=== PATIENT | male | born 1945 | race Caucasian/White ===

== ENCOUNTER → 2019-01-11 10:27 | Outpatient (CLI) | payer MEDICARE, OTHER ==
[2012-12-05 14:18] VITALS: BMI 35.0
[~2019-01-11 10:27] MED LIST: BAYER CHEWABLE81 MG PO; GLUCOPHAGE500 MG PO; LOTENSIN10 MG PO; PLAVIX75 MG PO; ZOCOR20 MG PO
== END | disposition home or self-care (01) ==
LOC: D.CT 10:27
PROVIDERS: ATTEND Internal Medicine Cardiovascular Disease
DX: I65.23 Occlusion and stenosis of bilateral carotid arteries (principal)

== ENCOUNTER 2019-02-22 14:50 | Inpatient (IN) | payer MEDICARE, OTHER ==
[~2019-02-22] VITALS: Ht 170.2 cm; Wt 94.8 kg
[2019-02-22] MEDS ORDERED: CO Q-10200 MG PO (15:10)
[2019-02-22] MEDS ORDERED: CENTRUM MEN'S1 EACH PO (15:11)
[2019-02-22 16:49] LABS: HEMATOCRIT 38.4 % (42.0-54.0); HEMOGLOBIN 12.6 g/dL (13.5-17.5); MCH 33.2 pg (26.0-34.0); MCHC 32.8 g/dL (31.0-37.0); MCV 101.1 fL (80.0-100.0); MEAN PLATELET VOLUME 10.3 fL (7.4-10.4); RBC 3.8 10x6/uL (4.20-6.10); RDW 13.4 % (11.5-14.5); WBC 6.8 10x3/uL (4.8-10.8)
[2019-02-22 16:50] LABS: APPEARANCE CLEAR (CLEAR); COLOR YELLOW (YELLOW); NITRITE NEGATIVE (NEGATIVE)
[2019-02-22 16:51] LABS: BILIRUBIN NEGATIVE (NEGATIVE); GLUCOSE NEGATIVE (NEGATIVE); KETONE NEGATIVE (NEGATIVE); PROTEIN 1+ mg/dL (NEGATIVE); UROBILINOGEN NORMAL (NORMAL)
[2019-02-22 16:52] LABS: BACTERIA FEW /hpf (NEGATIVE); RED CELLS - URINE RARE /hpf (0-5); WHITE CELLS - URINE OCC /hpf (NEGATIVE)
[2019-02-22 17:00] LABS: ALBUMIN 3.9 g/dL (3.4-5.0); ANION GAP 9.2 mmol/L (8-16); BILIRUBIN - TOTAL 0.35 mg/dL (0.2-1.3); CARBON DIOXIDE 33.2 mmol/L (21.0-32.0); CREATININE - SERUM 1.6 mg/dL (0.6-1.3); POTASSIUM - SERUM 5.4 mmol/L (3.5-5.1); PROTEIN - SERUM 7.4 g/dL (6.4-8.2)
[2019-02-22 17:15] LABS: APTT 25.3 SECONDS (22.8-39.4)
[2019-02-22 17:16] LABS: INR 1.08 (0.85-1.17); PROTIME 13.5 SECONDS (11.6-15.0)
[2019-02-28] VITALS (68 sets, daily range): BP systolic 106–190; BP diastolic 35–81; BMI 33.1; BMI 33.6
--- NOTE | 2019-02-28 11:00 | NUR ---
Arrived from O.R. around 1050. On 15L 02 via simple mask. Left anterior neck incision with dressing c/d/i. RIAZ chest SHANI drain in place, dressing c/d/i. R-Sub cvl with plasmolyte infusing at 100ml/hr and nitroglycerin at 50mcg/min. Right radial a-line in place. Zeroed on arrival. Pt awake and alert. Able to answer questions appropriately. Connected to ICU monitors. Call light in reach. Will continue to monitor.
--- NOTE | 2019-02-28 16:25 | NUR ---
PT ENCOURAGED TO PERFORM I.S. EXERCISES EVERY HOUR. PULLS BETWEEN [phone] ON I.S. AT THIS TIME. WILL CONTINUE TO MONITOR.
--- NOTE | 2019-02-28 19:00 | NUR ---
REPORT RECEIVED AT BEDSIDE, SHIFT ASSESSMENT COMPLETE PER FLOW SHEET, PT AAOx4 DENIES NEEDS AT THIS TIME, RESTING COMFORTABLY IN BED, NSR ON CM, VSS, LCEA SITE C/D/I, WILL CONTINUE TO MONITOR
--- NOTE | 2019-02-28 21:00 | NUR ---
MEDS GIVEN SEE MAR, NO ACUTE DISTRESS NOTED, PT AAOx4, FAMILY AT BEDSIDE, VSS
--- NOTE | 2019-02-28 23:00 | NUR ---
REASSESSMENT COMPLETE SEE FLOW SHEET, NO ACUTE CHANGES SINCE PRIOR ASSESSMENT, REPOSITIONED FOR COMFORT, VSS, WILL CONTINUE TO MONITOR
[2019-03-01] VITALS (134 sets, daily range): BP systolic 93–156; BP diastolic 38–79
--- NOTE | 2019-03-01 03:00 | NUR ---
REASSESSMENT COMPLETE, NO ACUTE CHANGES NOTED, PT DENIES PAIN OR NEEDS AT THIS TIME, VSS, REPOSITIOPNED FOR COMFORT, I/S AND TCDB COMPLETED WITH GOOD EFFORT,
--- NOTE | 2019-03-01 04:30 | NUR ---
LEFT UPPER CHEST SHANI DRAIN REMOVED BY KISHOR HEAD, DIRECT PRESSURE HELD FOR 15MIN, 2X2 GAUZE WITH TEGADERM DRSG PLACED ON SITE, NO ACUTE S/S OF DISTRESS NOTED, PT TOLLERATED Tx WELL, VSS, NSR ON CM, WILL CONTINUE TO MONITOR
--- NOTE | 2019-03-01 05:30 | NUR ---
CHG BATH AND COMPLETE LINEN CHANGE, YELLOW GOWN PLACED ON PT, REPOSITIONED IN BED FOR COMFORT, DRSG'S C/D/I, NSR ON CM, VSS, WILL CONTINUE TO MONITOR
--- NOTE | 2019-03-01 07:19 | NUR ---
UP IN BED AWAKE AT THIS TIME. NO ACUTE DISTRESS NOTED. VSS. CARDIAC DRIP TITRATED TO ORDER, SEE IV FLOWSHEET. PT ALERT AND ORIENTED. DRESSINGS TO LT NECK AND LT CHEST CDI, SEE SHIFT ASSESSMENT FOR FURTHER INFROMATION. CALL LIGHT IN REACH, PERSONAL ITEMS IN REACH. WILL CONTINUE PLAN OF CARE.
--- NOTE | 2019-03-01 08:13 | NUR ---
UP IN BED AWAKE AT THIS TIME VISITING WITH VISITOR. NO ACUTE DISTRESS NOTED. NITRO AND CLEVIPREX TITRATED TO ORDER, SEE IV FLOWSHEET. WILL CONTINUE PLAN OF CARE.
--- NOTE | 2019-03-01 09:06 | NUR ---
INCENTIVE SPIROMETER ATTEMPT NOTED AT [phone]. PT IS ALERT AND ORIENTED NO ACUTE DISTRESS NOTED. VSS. WILL CONTINUE PLAN OF CARE.
--- NOTE | 2019-03-01 10:00 | NUR ---
ANAYA DC AT THIS TIME PER PHYSICIAN ORDERS. CATHETER TIP INTACT. VSS. WILL CONTINUE PLAN OF CARE.
--- NOTE | 2019-03-01 10:55 | NUR ---
A-LINE DCD AT THIS TIME PER ORDERS, CATHETER TIP INTACT. PRESSURE HELD TO SITE FOR 5 MIN. WHEN PRESSURE REMOVED NOTED SITE WAS STILL BLEEDING, PRESSURE REAPPLIED FOR ANOTHER 5 MIN. AT THIS TIME BLEEDING HAS STOPPED. MADAY PLACED TO DRESSING TO INDICATE ANY FURTHER BLEEDING. VSS. WILL CONTINUE PLAN OF CARE.
--- NOTE | 2019-03-01 10:59 | NUR ---
UP IN CHAIR WITH ASSIST FROM PHYSICAL THERAPY.
--- NOTE | 2019-03-01 12:02 | NUR ---
UP IN CHAIR EATING LUNCH AT THIS TIME. NO ACUTE DISTRESS NOTED. VSS. NITRO AND CLEVIPREX TITRATED TO ORDER. SEE IV FLOWSHEET. WILL CONTINUE PLAN OF CARE.
--- NOTE | 2019-03-01 13:56 | NUR ---
WALKED WITH PHYSICAL THERAPY AT THIS TIME, STATED PT IS OKAY TO WALK IN ROOM. WALKED 200FT WITH PHYSICAL THERAPY. NO ACUTE DISTRESS NOTED. UP IN CHAIR. VSS. WILL CONTINUE PLAN OF CARE.
--- NOTE | 2019-03-01 14:00 | NUR ---
VOID NOTED VIA TOILET AT THIS TIME. NO ACUTE DISTRESS NOTED. VSS. WILL CONTINUE PLAN OF CARE.
--- NOTE | 2019-03-01 15:00 | NUR ---
PT WALKED WITH NURSE AT THIS TIME. 500FT. NO SHORTNESS OF BREATH NOTED DURING WALK. NO ACUTE DISTRESS NOTED. PT UP IN CHAIR IN ROOM. CALL LIGHT IN REACH. WILL CONTINUE PLAN OF CARE.
--- NOTE | 2019-03-01 15:41 | NUR ---
HEART RHYTHM SINUS WITH OCCASIONAL PAC. DR MENDEZ NOTIFIED. NO NEW ORDERS RECIEVED. VSS. WILL CONTINUE PLAN OF CARE.
--- NOTE | 2019-03-01 17:21 | NUR ---
WALKED 500FT WITH NURSE AND FAMILY. NO ACUTE DISTRESS NOTED. VSS. NO SOB NOTED. WILL CONTINUE PLAN OF CARE.
--- NOTE | 2019-03-01 20:06 | NUR ---
PT RECEIVED WITH EYES OPEN. ALERT AND ORIENTED. COMPLAINS OF PAIN 4/10 WITH PRN TRAMADOL GIVEN PER JUL. TITRATING NITRO PER PROTOCOL TO RIGHT SUBCLAVIAN WITH PLASMALYTE AT 30 ML/HR. DRESSING TO LEFT NECK FALLING OFF AND REPLACED, INCISION WELL APPROXIMATED AND NO DRAINAGE NOTED. JUST INTO ROOM. NO OTHER NEEDS MADE KNOWN. CALL LIGHT IN REACH. WILL CONTINUE TO OBSERVE.
--- NOTE | 2019-03-01 22:00 | NUR ---
PT WITH EYES OPEN TALKING WITH . CONTINUING NITRO TITRATION TOLERATING. NO NEEDS MADE KNOWN. CALL LIGHT IN REACH. WILL CONTINUE TO OBSERVE
--- NOTE | 2019-03-01 23:56 | NUR ---
PT RESTING WITH EYES CLOSED AND CHEST RISING. VSS. SBP <140, TITRATING NITRO TOLERATED. CALL LIGHT IN REACH. WILL CONTINUE TO OBSERVE.
[2019-03-02] VITALS (63 sets, daily range): BP systolic 107–167; BP diastolic 32–80; Ht 170.2 cm; Wt 94.8 kg
--- NOTE | 2019-03-02 01:43 | NUR ---
PT UP TO BATHROOM WITH ASSIST WITH MONITOR WIRES. URINE ONLY NOTED. PT BACK IN BED ON MONITOR. CALL LIGHT IN REACH. WILL CONTINUE TO OBSERVE.
--- NOTE | 2019-03-02 03:35 | NUR ---
PT RESTING WITH EYES CLOSED AND CHEST RISING. EASILY AWOKEN TO VERBAL STIMULI. CALL LIGHT IN REACH. NO S/S OF DISTRESS. NITRO ON HOLD DUE TO SBP <140
--- NOTE | 2019-03-02 06:59 | NUR ---
PT REFUSES BATH, STATING HE IS GOING HOME AND TAKE BATH/SHOWER AT HOME. CALL LIGHT IN REACH. WILL CONTINUE TO OBSERVE
--- NOTE | 2019-03-02 07:42 | NUR ---
PT UP TO CHAIR. GOES INTO AFIB 140 HR. B/P 144/80. DR MENDEZ CALLED AND GAVE REPORT, RECEIVED ORDERS FOR 5ML LOPRESSOR IV AND 25MG LOPRESSOR PO BID WITH FIRST DOSE GIVEN NOW. MEDS GIVEN. PT TOLERATED WELL. WILL REPORT TO ON COMING STAFF.
--- NOTE | 2019-03-02 11:41 | NUR ---
0730: AWAKE AND ALERT. REMAINS IN UNCONTROLLED ATRIAL FIB. 0745: NTG DC'D. 0830: DR. MENDEZ'S NURSE HERE. NEW ORDERS REC'D. 0849: LOPRESSOR 5MG GIVEN IV SLOWLY. 0900: CONSULT CALLED TO DR. LANE'S OFFICE. 0945: CONVERTED TO SR. 1120: DR. MENDEZ HERE. 1130: DR. LANE HERE FOR CONSULT. NEW ORDERS REC'D.
[2019-03-02] MEDS ORDERED: ULTRAM50 MG PO (13:04)
[2019-03-02] MEDS ORDERED: BETAPACE 80 MG80 MG PO (13:04)
--- NOTE | 2019-03-02 19:00 | NUR ---
REPORT RECEIVED. INITIAL ASSESSMENT COMPLETE PT RESTING QUIETLY OPENS EYES TO VERBAL STIMULI ORIENTED X 4 DENIES PAIN. LEFT NECK INCISION CLEAN DRY NO REDNESS NOTED SHAYLA. RESP EVEN AND NONLABORED O2 PER NC BREATH SOUNDS CLEAR. CM READING SR WITHOUT ECTOPY AT THIS TIME ALARMS ON AND AUDIBLE. BED LOW POSITION SIDE RAILS UP TIMES 3 FOR BED MOBILITY AND SAFETY. CALL LIGHT IN REACH PT DENIES NEEDS AT THIS TIME. WILL CONTINUE TO MONITOR
--- NOTE | 2019-03-02 19:06 | MORECARE ---
CASE MANAGEMENT DISCHARGE SUMMARY PATIENT: IRAIDA LAURENT UNIT: [id number] ADM DATE: 02/28/19 AGE: 73 : 45 SEX: M ROOM/BED: D[facility] AUTHOR: ASHLEIGH SCHMIDT PHYSICIAN: REFERRING PHYSICIAN: RODRI MENDEZ MD DATE OF SERVICE: 03/02/19 Discharge Plan Patient Name: IRAIDA LAURENT [facility] [facility] 1945 Planned Disposition: Home Anticipated Discharge Date: Discharge Date: Expected LOS: Initial Reviewer: [email or web address] Initial Review Date: 03/02/2019 Generated: 03/02/19 8:05 pm DCPIA - Discharge Planning Initial Assessment Updated by [email or web address]: Ashley Lara on 03/02/19 7:05 pm * Is the patient Alert and Oriented? Yes * How many steps to enter\exit or inside your home? * PCP SURINDER [facility] * [facility] [place] * Preadmission Environment Home Alone * ADLs Independent * Equipment None * List name and contact numbers for known caregivers / representatives who currently or will assist patient after discharge: YASH / REINALDO LAURENT - SON - [phone] * Verbal permission to speak to the caregivers and representatives has been obtained from the patient. Yes * Community resources currently utilized None * Additional services required to return to the preadmission environment? No * Can the patient safely return to the preadmission environment? Yes * Has this patient been hospitalized within the prior 30 days at any hospital? No Patient Name: IRAIDA LAURENT Page [id number] at 1906 All edits/amendments must be made on the electronic document DICTATION DATE: 03/02/191904 OIL BAY TECHNICIAN: ARIK 03/02/191904 RPT#: [id number] DC DATE: STATUS: ADM IN [facility] [address] [place] [address] END OF REPORT
--- NOTE | 2019-03-02 19:12 | MORECARE ---
CASE MANAGEMENT DISCHARGE SUMMARY PATIENT: IRAIDA LAURENT UNIT: [id number] ADM DATE: 02/28/19 AGE: 73 : 45 SEX: M ROOM/BED: D.02 AUTHOR: ROXANADOC PHYSICIAN: REFERRING PHYSICIAN: RODRI MENDEZ MD DATE OF SERVICE: 03/02/19 Discharge Plan Patient Name: IRAIDA LAURENT Facility: [facility]:[place] : 1945 Planned Disposition: Home Anticipated Discharge Date: Discharge Date: Expected LOS: Initial Reviewer: [email or web address] Initial Review Date: 03/02/2019 Generated: 03/02/19 8:12 pm Comments DCP- Discharge Planning Updated by [email or web address]: Ashley Lara on 03/02/19 6:[address] Patient Name: IRAIDA LAURENT Admission Status: Urgent Accout number: [id number] Admission Date: 02-28-2019 : 1945 Admission Diagnosis: Attending: RODRI MENDEZ Current LOS: 2 Anticipated DC Date: Planned Disposition: Home Primary Insurance: MEDICARE A & B Discharge Planning Comments: CM met with patient at bedside after explaining CM role and obtaining verbal consent. Patient lives at home alone where he is independent with his care and plans to return there upon discharge. Patient feels this would be a safe discharge. CM discussed availability / needs of home health and medical equipment. Patient denies any discharge needs at this time. Patient states he will have his family drive him home upon discharge. CM will continue to follow and assist as needed with discharge planning / needs. Medical Laboratory Manager: Ashley Lara DCPIA - Discharge Planning Initial Assessment Updated by [email or web address]: Ashley Lara on 03/02/19 7:05 pm * Is the patient Alert and Oriented? Yes * How many steps to enter\exit or inside your home? * PCP SURINDER Buc[facility] * [facility] [place] * Preadmission Environment Home Alone * ADLs Independent * Equipment None * List name and contact numbers for known caregivers / representatives who currently or will assist patient after discharge: YASH / REINALDO LAURENT - SON - [phone] * Verbal permission to speak to the caregivers and representatives has been obtained from the patient. Yes * Community resources currently utilized None * Additional services required to return to the preadmission environment? No * Can the patient safely return to the preadmission environment? Yes * Has this patient been hospitalized within the prior 30 days at any hospital? No Last DP export: 03/02/19 6:06 Patient Name: IRAIDA LAURENT Page 57715 at 1912 All edits/amendments must be made on the electronic document DICTATION DATE: 03/02/191911 PAN RECLAIM PROCESSOR: ARIK 03/02/191911 RPT#: [id number] DC DATE: STATUS: ADM IN [facility] [address] [place] [address] END OF REPORT
--- NOTE | 2019-03-02 20:00 | NUR ---
PTS AT BEDSIDE FOR VISITATION UPDATE GIVEN AND QUESTIONS ANSWERED. VSS WILL CONTINUE TO MONITOR
--- NOTE | 2019-03-02 21:00 | NUR ---
PT UP OUT OF BED WALKING AROUND. ENCOURAGED AGAIN TO CALL NURSE BEFORE GETTING OOB DUE TO FALL RISK. PT VERBALIZES GOOD UNDERSTANDING. ALSO REQUESTING WENT TO WAITING ROOM AND AT BEDSIDE FOR VISITATION
--- NOTE | 2019-03-02 22:15 | NUR ---
PTS OUT TO NURSES DESK STATING PT WANTING SOMETHING FOR PAIN. MEDICATED PER PRN ORDERS SEE EMAR
--- NOTE | 2019-03-02 23:00 | NUR ---
REASSESSMENT MADE NO CHANGES PTS AT BEDSIDE PER PTS REQUEST. NO S/S OF DISTRESS VSS CPOC
[2019-03-03] VITALS (25 sets, daily range): BP systolic 115–151; BP diastolic 37–71
--- NOTE | 2019-03-03 01:00 | NUR ---
PT MOUTH BREATHER AND USES CPAP AT HOME. ON O2 PER NC WITH SATS DROPPING TO MID 80'S AT TIMES DOES INCREASE BACK TO 90'S QUICKLY. WILL PASS ALONG IN REPORT
--- NOTE | 2019-03-03 03:00 | NUR ---
REASSESSMENT COMPLETE AFTER SOTALOL PT HEART RATE DROPS TO 40'S BUT DOES RETURN BACK TO 70-80'S QUICKLY, PT IS A MOUTH BREATHER AND USES HOME CPAP AT TIMES O2 SAT DROPS TO MID 80'S BUT QUICKLY RETURNS TO 90'S. DENIES NEEDS AT THIS TIME. DENIES PAIN. CL IN REACH AT BEDSIDE CPOC
--- NOTE | 2019-03-03 04:15 | NUR ---
ANSWERED PTS CALL LIGHT PT NEEDED UP TO BATHROOM STEADY GAIT MINIMAL ASSIST JUST WITH MONITOR LINES AND CORDS. AFTER BATHROOM PT WANTED TO SIT UP IN CHAIR STATES HE WANTS TO SIT BED NOT COMFORTABLE.
--- NOTE | 2019-03-03 05:00 | NUR ---
PT NOT READY FOR BATH AT THIS TIME WANTS BACK TO BED ASSISTED BACK TO BED. STILL AT BEDSIDE
--- NOTE | 2019-03-03 06:45 | NUR ---
PT UP TO CHAIR MINIMAL ASSIST JUST WITH CORDS AND TUBING.
--- NOTE | 2019-03-03 06:50 | NUR ---
PTS WANTS TO WAIT UNTIL AFTER BREAKFAST FOR BATH AND HIS WILL ASSIST WITH BATH
--- NOTE | 2019-03-03 07:05 | NUR ---
UP IN CHAIR, ALERT AND ORIENTED, SB @ 59 ON MONITOR, OTHER VSS, DENIES PAIN OR ANY NEEDS, ASSESSMENT COMPLETED PER FLOWSHEET, CALL LIGHT IN REACH
--- NOTE | 2019-03-03 07:55 | NUR ---
BREAKFAST TO CHAIRSIDE, INDEPENDENT WITH SET UP AND EATING
--- NOTE | 2019-03-03 10:37 | NUR ---
MORNING MEDS GIVEN, SOTALOL DECREASED TO 40 MG
--- NOTE | 2019-03-03 11:00 | NUR ---
SLEEPING WITH NO SIGNS OF DISTRESS, AROUSABLE TO VERBAL STIMULI, VSS DENIES PAIN, CALL LIGHT IN REACH, NO NEEDS AT THIS TIME
--- NOTE | 2019-03-03 13:00 | NUR ---
AMBULATED AROUND UNIT X2, TOLERATED WITHOUT DIFFICULTY, RECONNECTED TO MONITORS, SB, AFIB ON MONITOR
--- NOTE | 2019-03-03 13:45 | NUR ---
BTB, CPAP INITIATED BY RT, WITH 35% FIO2,
--- NOTE | 2019-03-03 15:00 | NUR ---
SLEEPING WITH CPAP IN NO SIGNS OF DISTRESS, VSS, WILL CONITNUE TO MONITOR
--- NOTE | 2019-03-03 16:10 | NUR ---
CPAP ALARMING, PC TO RT, RT TO BEDSIDE, VOLUME SETTING CHANGED
--- NOTE | 2019-03-03 17:57 | NUR ---
CPAP OFF, 3LNC PLACED, OOB TO CHAIR, TRANSFERRED WITHOUT DIFFICULTY, VSS, DINNER TRAY TO BEDSIDE, SIGNIFICANT OTHER AT BEDSIDE, NO NEEDS AT THIS TIME
--- NOTE | 2019-03-03 19:00 | NUR ---
PT AWAKE SITTING UP IN CHAIR @ BEDSIDE, LUNGS CLEAR, O2 @ 3L VIA N/C, RIGHT DLSC INTACT AND SL, NO C/O @ THIS TIME
--- NOTE | 2019-03-03 21:00 | NUR ---
PT AWAKE LYING IN BED, TAKES PO MEDS WITHOUY DIFFICULTY, PLACED PT ON BIPAP FOR SLEEP
--- NOTE | 2019-03-03 23:00 | NUR ---
PT SLEEPING WITHOUT DISTRESS, WILL CONT TO MONITOR
[2019-03-04] VITALS (16 sets, daily range): BP systolic 120–175; BP diastolic 48–76
--- NOTE | 2019-03-04 01:00 | NUR ---
PT SLEEPING WITH BIPAP IN USE, VITALS STABLE, WILL CONT TO MONITOR
--- NOTE | 2019-03-04 03:00 | NUR ---
PT SLEEPING, HOB ELEVATED 30 DEGREES, REMAINS ON BIPAP, VITALS STABLE
--- NOTE | 2019-03-04 05:30 | NUR ---
PT AWAKE, REMOVED BIPAP, UP TO CHAIR WITH ASSIST FROM , PT BATHED SELF WITH ASSIST
--- NOTE | 2019-03-04 08:35 | NUR ---
PT UP AD AMINATA. NEURO INTACT. DENIES PAIN. INCISION L NECK CDI. BREAKFAST TRAY SERVED AND PT EATING WITH OUT DIFFICULTY. AT BS. ALL ALARMS ON MONITORING EQUIPMENT ATTACHED AND ALARMS SET.
--- NOTE | 2019-03-04 11:27 | NUR ---
DR CHAIREZ HERE.
[2019-03-04] MEDS ORDERED: LISINOPRIL5 MG PO (11:42)
[2019-03-04] MEDS ORDERED: BETAPACE 80 MG80 MG PO (11:42)
--- NOTE | 2019-03-04 11:43 | NUR ---
DR CHAIREZ HERE. BP 173/73. LISINOPRIL GIVEN.
[2019-03-04 12:35] LABS: CALCIUM 8.8 mg/dL (8.5-10.1); CARBON DIOXIDE 28.4 mmol/L (21.0-32.0); CREATININE - SERUM 1.3 mg/dL (0.6-1.3); POTASSIUM - SERUM 4.4 mmol/L (3.5-5.1)
--- NOTE | 2019-03-04 14:38 | NUR ---
cvl dcd, tip intact. pt dressed and dc home with family. dc instruction reviewed with pt and family.
--- NOTE | 2019-03-05 08:47 | MORECARE ---
CASE MANAGEMENT DISCHARGE SUMMARY PATIENT: IRAIDA LAURENT UNIT: [id number] ADM DATE: 02/28/19 AGE: 73 : 45 SEX: M ROOM/BED: D.CV02 AUTHOR: ROXANADOC PHYSICIAN: REFERRING PHYSICIAN: RODRI MENDEZ MD DATE OF SERVICE: 03/05/19 Discharge Plan Patient Name: IRAIDA LAURENT Facility: [facility]:[place] : 1945 Planned Disposition: Home Anticipated Discharge Date: Discharge Date: 03/04/2019 Expected LOS: Initial Reviewer: [email or web address] Initial Review Date: 03/02/2019 Generated: 03/05/19 9:46 am Comments DCP- Discharge Planning Updated by [email or web address]: Ashley Lara on 03/02/19 6:[address] Patient Name: IRAIDA LAURENT Admission Status: Urgent Accout number: [id number] Admission Date: 02-28-2019 : 1945 Admission Diagnosis: Attending: RODRI MENDEZ Current LOS: 2 Anticipated DC Date: Planned Disposition: Home Primary Insurance: MEDICARE A & B Discharge Planning Comments: CM met with patient at bedside after explaining CM role and obtaining verbal consent. Patient lives at home alone where he is independent with his care and plans to return there upon discharge. Patient feels this would be a safe discharge. CM discussed availability / needs of home health and medical equipment. Patient denies any discharge needs at this time. Patient states he will have his family drive him home upon discharge. CM will continue to follow and assist as needed with discharge planning / needs. Insurance Loss Control Surveyor: Ashley Lara DCPIA - Discharge Planning Initial Assessment Updated by [email or web address]: Ashley Lara on 03/02/19 7:05 pm * Is the patient Alert and Oriented? Yes * How many steps to enter\exit or inside your home? * PCP SURINDER Bucio * [facility] [place] * Preadmission Environment Home Alone * ADLs Independent * Equipment None * List name and contact numbers for known caregivers / representatives who currently or will assist patient after discharge: YASH / REINALDO LAURENT - SON - [phone] * Verbal permission to speak to the caregivers and representatives has been obtained from the patient. Yes * Community resources currently utilized None * Additional services required to return to the preadmission environment? No * Can the patient safely return to the preadmission environment? Yes * Has this patient been hospitalized within the prior 30 days at any hospital? No Last DP export: 03/02/19 6:12 Patient Name: IRAIDA LAURENT Page 51360 at 0847 All edits/amendments must be made on the electronic document DICTATION DATE: 03/05/19845 ODD JOBS DAY WORKER: ARIK 03/05/19845 RPT#: [id number] DC DATE:03/04/19 STATUS: DIS IN [facility] [address] [place] [address] END OF REPORT
--- NOTE | 2019-03-05 10:34 | OP ---
PATIENT NAME: IRAIDA LAURENT MEDICAL RECORD: [id number] :[birth year] LOCATION:[place] D.CV02 ADMISSION DATE:02/28/19 SURGEON: ESCOBAR MENDEZ MD DATE OF OPERATION: 02/28/2019 SURGEON: Escobar Mendez MD ANESTHESIA: General endotracheal, Dr. Miller. OPERATION PERFORMED: Left carotid endarterectomy with patch angioplasty. PREOPERATIVE DIAGNOSIS: Severe left internal carotid artery stenosis. POSTOPERATIVE DIAGNOSIS: Severe left internal carotid artery stenosis. INDICATION FOR OPERATION: Severe left internal carotid artery stenosis. FINDINGS OF THE OPERATION: Severe left internal carotid artery stenosis. There were no EEG changes with clamping or unclamping of the carotid artery. ESTIMATED BLOOD LOSS: Less than 150 cc. DESCRIPTION OF PROCEDURE: After informed consent, adequate preoperative medication evaluation, the patient was brought to the operating room, placed on the table in the supine position. After induction of general endotracheal anesthesia and application of appropriate monitoring devices, the left neck was prepped and draped in sterile field. Utilizing Betadine scrub, alcohol, and Betadine solution. Betadine-impregnated drape was also used. An oblique incision was made in the skin crease. Dissection carried down the fascia. Hemostasis maintained with electrocautery. Facial vein was identified and divided. Utilizing sharp dissection, the common carotid, internal and external carotid arteries were dissected free of surrounding structures, protecting the neurological structures. The patient was given a calculated dose of heparin after 3 minutes, clamps were applied. After 2 minutes, no EEG change. The arteriotomy was made and extended with Verdin scissors. Artery underwent endarterectomy sharply. Artery underwent extensive debridement and irrigation. The arteriotomy was approximately 10 cm. The arteriotomy was closed with a patch angioplasty technique utilizing running 6-0 Prolene suture. All maneuvers to remove trapped air were performed. The clamps removed sequentially. There were no EEG changes. The patient was given a calculated dose of protamine to reverse the heparin. Hemostasis was achieved. A #7 Rusty-De La Paz drain was left in depths of wound and brought through the base of the neck. Neck was again irrigated. Instrument count and sponge count were correct times 2. Neck was closed in layers utilizing 3-0 Vicryl on the platysma, 5-0 subcuticular Monocryl on the skin. Sterile dressings were applied. The patient tolerated the procedure well and was transferred to cardiovascular intensive care in satisfactory condition. TRANSINT:[id number] Voice Confirmation ID: [id number] DOCUMENT ID: [id number] OPERATIVE REPORT [id number] IRAIDA LAURENT, ESCOBAR WOLF at 1034 CC: [id number] DICTATION DATE: 02/28/19 1053 CARE MANAGEMENT SPECIALIST: 02/28/19 1106 DIS IN 03/04/19 [place] [id number] [place] [id number]
--- NOTE | 2019-03-06 11:41 | EC ---
PATIENT:IRAIDA LAURENT DATE OF SERVICE: 02/28/19 SEX: M MEDICAL RECORD: [id number] DATE OF : [birth year] LOCATION:[place] [address] AGE OF PATIENT: 74 ADMISSION DATE: 02/28/19 REFERRING PHYSICIAN: INTERPRETING PHYSICIAN: BONIFACIO BANERJEE MD ECHOCARDIOGRAM REPORT ECHO CHARGES 4 ECHO COMPLETE Date: 03/02/19 CLINICAL DIAGNOSIS: A-FIB ECHOCARDIOGRAPHIC MEASUREMENTS (adult normal given) AC root (d.<3.7cm) 3.5 cm LV Septum d (<1.2 cm> 1.2 cm Valve Excursion 1.3 cm LV Septum (systole) 1.5 cm Left Atria (s.<4.0cm> 3.9 cm LVPW d(<1.2cm) 1.3 cm RV (d.<2.3cm) 3.1 cm LVPW (sytole) 1.9 cm LV diastole(<5.6CM) 6.2 cm MV E-F(>70mm/sec) cm LV systole 4.6 cm LVOT Diameter 2.2 cm MV exc.(>10mm) cm Est.ejection fraction (50-75%) % DOPPLER: LVIT cm/sec A 103 cm/sec E 92.0 cm/sec LA cm/sec RVSP 22.0 mmHg LVOT 109 cm/sec AOP1/2T m/s Asc. Ao 232 cm/sec RVOT 50.0 cm/sec RA cm/sec PA 136 cm/sec AV Gradient Peak 22.0 mmHg AV Mean 12.0 mmHg AV Area 1.7 cm MV Gradient Peak 6.0 mmHg MV Mean 3.0 mmHg MV Area cm COMMENTS: Factory Engineer: 1 OCTAVIANO WARRENOE Dairy Laboratory Technician: 1 Dr. Banerjee TAPE# PACS Pericardial Effusion N DATE OF SERVICE: PROCEDURE: Echocardiogram. FINDINGS: 1. Left ventricular chamber size is mildly dilated. Left ventricular systolic function is preserved at 55% to 60%. 2. Left atrium is within normal limits at 3.9 cm. Right atrium and right ventricular chamber sizes are mildly dilated. 3. Valvular structures: Aortic valve demonstrates mild calcific aortic ECHOCARDIOGRAM REPORT [id number] IRAIDA LAURENT stenosis, valve area calculates to 1.7 cm-squared with gradient of 22 mm across the valve. The remaining valvular structures have normal structure and motion. 4. Doppler interrogation elsewise reveals [id number] mitral regurgitation, trace tricuspid regurgitation, no other valvular insufficiency or stenosis. Pulmonary systolic pressure is estimated at 22 mmHg. 5. No evidence of pericardial effusion or left ventricular thrombus. TRANSINT:[id number] Voice Confirmation ID: [id number] DOCUMENT ID: [id number] BONIFACIO BANERJEE MD at 1141 CC: [id number] DICTATION DATE: 03/05/19 1122 SHAKER FLATWORK: 03/05/19 1210 DIS IN 03/04/19 [facility] [address] [place] [address]
--- NOTE | 2019-03-06 11:41 | CN ---
PATIENT NAME:IRAIDA LAURENT MEDICAL RECORD: [id number] : 45 LOCATION:[facility] ADMIT DATE: 02/28/19 ACCOUNT: [id number] CONSULTING PHYSICIAN: BONIFACIO LANE MD REFERRING PHYSICIAN: RODRI MENDEZ MD DATE OF CONSULTATION: 03/02/2019 DIAGNOSES: 1. Paroxysmal atrial fibrillation. 2. Carotid vascular disease, status post carotid endarterectomy. 3. Coronary artery disease. 4. Status post coronary bypass graft surgery. HISTORY OF PRESENT ILLNESS: Mr. Laurent presented for carotid endarterectomy secondary to symptomatic carotid disease, was having initially PACs. Postoperatively, he went into atrial fibrillation, he was given 1 dose of sotalol. He is back in sinus rhythm now. However, he is still going with runs of atrial tachycardia followed by sinus rhythm. PHYSICAL EXAMINATION: CONSTITUTIONAL/GENERAL APPEARANCE: Well nourished, well developed, appears stated age. EYES: Lids and conjunctivae noninjected. No discharge. No pallor. ENT: Lips within normal limit. No cyanosis. No pallor. NECK: Carotid arteries, bilateral normal upstroke. No bruits. No thrills. No jugular venous pressure or distention. CERVICAL LYMPH NODES: Nontender. Nonenlarged. THYROID: Not enlarged. No nodules. CARDIOVASCULAR: Precordial exam, nondisplaced. No heaves or pericardial thrills. Rate and rhythm, regular. Heart sounds, normal S1, normal S2. No S3, no gallop, no rub. Systolic murmur, not heard. Diastolic murmur, not heard. RESPIRATORY: Respiratory effort, unlabored. Normal curvature. No thoracic deformity. No chest wall tenderness. Percussion, resonant. Auscultation, clear. No wheezes, no rales, no rhonchi. ABDOMEN: Soft, nondistended, nontender. No abdominal pain, no vomiting and normal appetite. MUSCULOSKELETAL: No joint tenderness, normal gait, normal tone. SKIN: Warm and dry. OVERALL IMPRESSION: Sick sinus syndrome, tachy and jeanette. At this time, he is tolerating the sotalol with no significant bradycardia, still having some tachyarrhythmias. We will continue the sotalol at 80 mg b.i.d. We will get an echocardiogram for chamber size evaluation. We will see him as a followup as well if he maintains sinus rhythm. TRANSINT:[id number] Voice Confirmation ID: [id number] DOCUMENT ID: [id number] CONSULT REPORT [id number] IRAIDA LAURENT, BONIFACIO WOLF at 1141 CC: [id number] DICTATION DATE: 03/02/19 1138 CITY AUDITOR: 03/02/19 1148 DIS IN 03/04/19 [place] [id number] [place] [id number]
== END 2019-03-04 14:39 | disposition home or self-care (01) | DRG 39 ==
LOC: D.SDCHOLD 02-28 05:30 → D.CVICU 02-28 05:30 → D.SDCHOLD 02-28 07:30 → D.CVICU 02-28 09:23
PROVIDERS: Thoracic Surgery (Cardiothoracic Vascular Surgery); ADMIT Internal Medicine Cardiovascular Disease; ATTEND Internal Medicine Cardiovascular Disease
PROC: 03UL0JZ Supplement Left Internal Carotid Artery with Synthetic Substitute, Open Approach (ICD-10-PCS; 2019-02-28)
PROC: 03CL0ZZ Extirpation of Matter from Left Internal Carotid Artery, Open Approach (ICD-10-PCS; principal; 2019-02-28 07:30)
DX: I65.22 Occlusion and stenosis of left carotid artery (principal); I48.0 Paroxysmal atrial fibrillation; I25.10 Atherosclerotic heart disease of native coronary artery without angina pectoris; J44.9 Chronic obstructive pulmonary disease, unspecified; K21.9 Gastro-esophageal reflux disease without esophagitis; I10 Essential (primary) hypertension; R00.1 Bradycardia, unspecified

== ENCOUNTER → 2019-03-08 13:25 | Outpatient (CLI) | payer MEDICARE, OTHER ==
[2019-03-02 11:35] VITALS: BMI 34.2
[~2019-03-08 13:25] MED LIST changes: +BETAPACE 80 MG80 MG PO; +CENTRUM MEN'S1 EACH PO; +CO Q-10200 MG PO; +LISINOPRIL5 MG PO; +ULTRAM50 MG PO
[2019-03-08 14:30] LABS: CREATININE - SERUM 1.6 mg/dL (0.6-1.3)
== END | disposition home or self-care (01) ==
LOC: D.LAB 13:25
PROVIDERS: ATTEND Internal Medicine Cardiovascular Disease
DX: N28.9 Disorder of kidney and ureter, unspecified (principal)

== ENCOUNTER → 2019-04-19 11:52 | Outpatient (CLI) | payer MEDICARE, OTHER ==
[2019-03-02 11:35] VITALS: BMI 34.2
== END | disposition home or self-care (01) ==
LOC: D.CN 11:52
PROVIDERS: ATTEND Internal Medicine Cardiovascular Disease
DX: I48.91 Unspecified atrial fibrillation (principal)

== ENCOUNTER → 2019-05-25 07:35 | Outpatient (CLI) | payer MEDICARE, OTHER ==
[2019-03-02 11:35] VITALS: BMI 34.2
[2019-05-25 08:34] LABS: INR 1.07 (0.85-1.17); PROTIME 13.8 SECONDS (11.6-15.0)
[2019-05-25 08:36] LABS: ALBUMIN 3.7 g/dL (3.4-5.0); ANION GAP 11.2 mmol/L (8-16); BILIRUBIN - TOTAL 0.26 mg/dL (0.2-1.3); CALCIUM 8.9 mg/dL (8.5-10.1); CARBON DIOXIDE 29.8 mmol/L (21.0-32.0); CREATININE - SERUM 1.5 mg/dL (0.6-1.3); PROTEIN - SERUM 7.2 g/dL (6.4-8.2)
[2019-05-25 09:03] LABS: BASOPHILS 0.4 % (0-2); EOSINOPHILS 5.7 % (0-7); HEMATOCRIT 36.8 % (42.0-54.0); IMMATURE GRANULOCYTES 0.1 % (0-5); LYMPHOCYTES 18.9 % (15-50); MCH 32.9 pg (26.0-34.0); MCHC 32.6 g/dL (31.0-37.0); MCV 100.8 fL (80.0-100.0); MEAN PLATELET VOLUME 10.9 fL (7.4-10.4); MONOCYTES 14.6 % (2-11); NEUTROPHILS 60.3 % (40-80); PLATELET COUNT 160 10x3/uL (130-400); RBC 3.65 10x6/uL (4.20-6.10); RDW 13.5 % (11.5-14.5); WBC 6.8 10x3/uL (4.8-10.8)
== END | disposition home or self-care (01) ==
LOC: D.US 07:35
PROVIDERS: ATTEND Internal Medicine Gastroenterology
DX: R13.10 Dysphagia, unspecified (principal); R10.11 Right upper quadrant pain

== ENCOUNTER 2019-05-28 09:15 | Day surgery (SDC) | payer MEDICARE, OTHER ==
[~2019-05-28] VITALS: Ht 170.2 cm; Wt 93.2 kg
[2019-05-28 09:49] LABS: HEMATOCRIT 41.8 % (42.0-54.0); HEMOGLOBIN 13.7 g/dL (13.5-17.5); MCHC 32.8 g/dL (31.0-37.0); MCV 100.7 fL (80.0-100.0); MEAN PLATELET VOLUME 10.4 fL (7.4-10.4); RBC 4.15 10x6/uL (4.20-6.10); RDW 13.6 % (11.5-14.5); WBC 6.8 10x3/uL (4.8-10.8)
[2019-05-28 10:44] VITALS: BP 182/76; Ht 170.2 cm; Wt 93.2 kg
--- NOTE | 2019-05-28 12:20 | NUR ---
1203 IV DC'D. CATHETER TIP INTACT. PRESSURE HELD UNTIL BLEEDING CEASED. BANDAID APPLIED.
--- NOTE | 2019-05-29 07:42 | OP ---
PATIENT NAME: IRAIDA LAURENT MEDICAL RECORD: [id number] :45 LOCATION:[facility] ADMISSION DATE: SURGEON: MARA HOFFMANN DO DATE OF OPERATION: 05/28/2019 PROCEDURE: EGD with biopsies. INDICATIONS FOR PROCEDURE: Dysphagia and abnormal imaging with a barium esophagram showing a severe stricture of the distal esophagus. SCOPE: Olympus video gastroscope. MEDICATIONS: Propofol 150 mg IV per anesthesia. ESTIMATED BLOOD LOSS: Minimal. COMPLICATIONS: None immediate. FINDINGS: Informed consent was given. The patient was made comfortable with the above medication. After reaching an adequate level of sedation by slow IV push, the patient was placed on his left side. The endoscope was advanced under direct visualization through the mouth to the distal esophagus. This was the extent that the endoscope could traverse due to a malignant appearing tumor and stricture. The endoscope had no difficulty reaching the distal esophagus. The entire proximal esophagus appeared normal. At approximately 38 cm from the incisors, a polypoid-appearing tumor, which occupied approximately 25% of the luminal diameter and circumference of the esophagus was identified. Appearances were consistent with a malignancy. The endoscope was pushed further down the esophagus with an attempt made to pass through the stricture site just distal to this tumor. The luminal diameter decreased to less than 3-5 mm in diameter and the endoscope could not traverse the site. An 8-10 mm CRE dilating balloon was placed through the working channel and gently passed through the strictured site. The balloon was inflated to 10 mm maximum diameter successfully and an attempt was made to follow the balloon with the endoscope through the stricture site. The attempt was unsuccessful as the endoscope still could not traverse through the strictured area. Pictures were taken from the strictured site. Appearances appeared to involve 100% of the circumference of the esophageal lumen. The tissue was very friable with abnormal vascular patterns and it was nodular. No biopsies were taken from within the strictured site due to the patient being on Plavix up until 48 hours ago and the high risk for bleeding. The endoscope was brought back up to where the original polypoid lesion was located at 38 cm and multiple cold forceps biopsies were taken from this site to submit for pathology. The endoscope was withdrawn from the patient. The patient tolerated the procedure well and there were no immediate complications. 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 The endoscope could not traverse the site, so the distal extent of the tumor and stricture are unknown. Multiple cold forceps biopsies were taken. PLAN AND RECOMMENDATIONS: 1. Discharge home when recovery parameters are met. 2. Follow up biopsy specimen results. 3. GERD diet and reflux precautions. 4. Continue current diet, which includes soft foods. Continue to chew food OPERATIVE REPORT [id number] IRAIDA LAURENT well and wash solids down with liquids. 5. We will initiate an oncology referral at this time, while awaiting biopsy results. TRANSINT:[id number] Voice Confirmation ID: [id number] DOCUMENT ID: [id number] MARA HOFFMANN DO at 0742 CC: [id number] DICTATION DATE: 05/28/19 1149 TUBE CUTTER: 05/28/[address] [facility] 05/28/19 [place] [id number] [place] [address]
== END 2019-05-28 12:23 | disposition home or self-care (01) ==
LOC: D.OPS 09:15
PROVIDERS: Anesthesiology; ATTEND Internal Medicine Gastroenterology
DX: R13.10 Dysphagia, unspecified (principal); K22.2 Esophageal obstruction

== ENCOUNTER 2019-07-19 09:14 | Inpatient (IN) | payer MEDICARE, OTHER ==
[~2019-07-19] VITALS: Ht 175.3 cm; Wt 90.7 kg
--- NOTE | ~2019-07-19 | HEMODYNAMI ---
PATIENT:IRAIDA LAURENT MEDICAL RECORD: [id number] : 45 [facility] [id number] ADMISSION DATE: 07/19/19 Generatedon:07/20/201910:59 Patient name: IRAIDA LAURENT Patient #: [id number] SSN: D OB: 1945 Date of study: 07/20/2019 Page: Of Hemodynamic Procedure Report Patient Data Patient Demographics Procedure consent was obtained First Name: IRAIDA Gender: Male Last Name: ANASTASIIA : 1945 [facility] Initial: J Age: 74 year(s) Patient #: [id number] Race: Unknown Additional ID: [id number] Contact details Address: [place] [address] State: [place] City: [place] Zip code: [address] Past Medical History History of disease Date Diagnosis Comments CAD COPD Allergies: No known allergies Admission Admission Data Admission Date: 07/19/2019 Admission Time: 11:49 Room #: [facility] Lab Results Lab Result Date: 07/20/2019 Lab Result Time: 0:00 Biochemistry Name Units Result Min Max BUN mg/dl 23 --(----)-* 7 18 Creatinine mg/dl 1 --(--*-)-- 0.6 1.3 eGFR ml/min 78 *-(----)-- 90 120 NONAFRICAN CBC Name Units Result Min Max Hematocrit % 30.3 *-(----)-- 42 54 Hemoglobin g/dl 10.6 *-(----)-- 13.5 17.5 Procedure Procedure Types Cath Procedure Diagnostic Procedure LHC LHC w/Coronaries w/Grafts Procedure Description Procedure Date Procedure Date: 07/20/2019 Procedure Start Time: 10:29 Procedure End Time: 10:57 Procedure Staff Name Function Man Khanna MD Performing Physician Janelle Keys RN Nurse Hannah Leija RT Scrub Tiffany Anderson RT Monitor Procedure Data Cath Procedure Fluoroscopy Diagnostic fluoroscopy Total fluoroscopy Time: 7.6 time: 7.6 min min Diagnostic fluoroscopy Total fluoroscopy dose: 780 dose: 780 mGy mGy Contrast Material Contrast Material Type Amount (ml) Isovue 300 88 Entry Location Entry Primary Successful Side Size Upsize Upsize Entry Closure Succes sful Closure Location (Fr) 1 (Fr) 2 (Fr) Remarks Device Remarks Femoral Right 5 Fr Exoseal artery Estimated blood loss: 10 ml Diagnostic catheters Device Type Used For End Catheter Placement MULTIPACK JL 4.0 5Fr Procedure catheter MULTIPACK 3DRC 5Fr Procedure catheter DIAGNOSTIC AR MOD 5Fr Procedure Catheter ([id number]) DIAGNOSTIC IMT 5Fr Procedure Catheter ([id number]) MULTIPACK Pigtail 5 Fr Ventriculography catheter Procedure Complications No complications Procedure Medications Medication Administration Route Dosage 0.9% NaCl I.V. 100 ml/hr Oxygen etCO2 Nasal cannula 2 l/min Lidocaine 2% added to field 20 Heparin Flush Bag added to field 2 bags (1000units/500ml NS) Versed I.V. 2 mg Fentanyl I.V. 50 mcg Fentanyl I.V. 50 mcg Hemodynamics Rest HGB: 10.6 (g/dl) Heart Rate: 94 (bpm) Snapshots Pre Cath Intra NCS Post Cath Vital Signs Time Heart Resp SPO2 etCO2 NIBP (mmHg) Rhythm Pain Sedation Rate (ipm) (%) (mmHg) Status Level (bpm) 10:17:22 91 15 97 26 182/93(142) NSR 0 (11) 10(A) , No pain 10:21:55 89 22 98 14.3 159/87(124) NSR 0 (11) 10(A) , No pain 10:26:21 95 24 98 35 157/86(119) NSR 0 (11) 10(A) , No pain 10:30:47 89 17 98 34.7 162/76(130) NSR 0 (11) 10(A) , No pain 10:35:17 89 18 99 24.1 161/73(136) NSR 0 (11) 10(A) , No pain 10:40:17 90 21 100 4.5 Measuring NSR 0 (11) 9(A) , No pain 10:40:33 95 21 100 12 152/84(124) NSR 0 (11) 9(A) , No pain 10:44:51 85 16 100 30.2 152/89(119) NSR 0 (11) 9(A) , No pain 10:49:17 86 21 100 7.5 158/84(126) NSR 0 (11) 9(A) , No pain 10:53:44 86 18 100 12 154/87(122) NSR 0 (11) 10(A) , No pain Medications Time Medication Route Dose Verified Delivered Reason Notes Eff ectiveness by by 10:20:52 0.9% NaCl I.V. 100 Man Janelle used for ml/hr Jey Keys band aid machine operator 10:20:59 Oxygen etCO2 2 Man Janelle used for Nasal l/min Jey Keys procedure cannula RN 10:21:04 Lidocaine 2% added 20ml Man Man for local to vial Jey Khanna MD anesthetic field 10:21:08 Heparin Flush added 2 Man Man used for Bag to bags Jey Khanna MD procedure (1000units/500ml field NS) 10:29:35 Versed I.V. 2 mg Man Janelle for Jey Keys sedation RN 10:29:42 Fentanyl I.V. 50 Man Janelle for mcg Jey Keys sedation RN 10:34:02 Fentanyl I.V. 50 Man Janelle for mcg Jey Keys sedation trucker hand Log Time Note 9:59:09 Informed consent obtained and on chart 9:59:53 Procedure Status Urgent Heart Cath (IP). 9:59:55 Time tracking: Regular hours (M-F 7:00 - 5:00) 9:59:58 Plan of Care:Hemodynamics will remain stable., Cardiac rhythm will remain stable., Comfort level will be maintained., Respiratory function will remain adequate., Patient/ family verbilizes understanding of procedure., Procedure tolerated without complication., Recovers from procedure without complications.. 10:00:02 Janelle Keys RN sent for patient. Start room use. 10:00:06 H&P Date Dictated: 07/20/2019 ER History on chart.. 10:00:15 Patient allergic to No known allergies 10:00:26 Procedure type changed to Cath procedure, Diagnostic procedure, LHC, LHC w/Coronaries w/Grafts 10:02:01 Lab Result : eGFR NONAFRICAN 78 ml/min 10:02:01 Lab Result : Creatinine 1 mg/dl 10:02:01 Lab Result : BUN 23 mg/dl 10:02:01 Lab Result : Hematocrit 30.3 % 10:02:01 Lab Result : Hemoglobin 10.6 g/dl 10:07:19 Risk of Mortality: .5 10:07:29 Risk of blood transfusion: .4 10:07:31 Risk of SAIRA: 1.6 10:11:37 Patient received from Med II to CCL 1 Alert and oriented. Tansferred to table in Supine position. 10:11:38 Warm blankets applied, and isaías hugger turned on for patient comfort. 10:11:38 Correct patient and procedure confirmed by team. 10:11:39 ECG and BP/O2 sat monitors applied to patient. 10:16:04 Vital chart was started 10:16:05 Baseline sample Acquired. 10:16:09 Rhythm: sinus rhythm 10:16:10 Full Disclosure recording started 10:16:12 Pre-procedure instructions explained to patient. 10:16:14 Pre-op teaching completed and patient verbalized understanding. 10:16:16 Family in patients room. 10:16:17 Patient NPO since Midnight. 10:16:19 Is the patient allergic to Iodine/contrast media? No. 10:16:23 Is patient on blood thinner?No 10:16:40 PLAVIX A FEW DAYS AGO- PT STATES COULDNT HOLD ANYTHING DOWN 10:16:43 Patient diabetic? No. 10:16:48 Previous problem with sedation/anesthesia? No ? 10:16:49 Snore? Yes 10:16:50 Sleep apnea? Yes 10:16:53 Deviated septum? No 10:16:54 Opens mouth fully? Yes 10:16:55 Sticks out tongue? Yes 10:16:58 Airway obstruction? Yes COPD 10:17:01 Dentures? No ? 10:17:05 Pre procedure: right dorsailis pedis pulse 1+ Palpable, but thready & weak; easily obliterated 10:17:07 Patient pain scale 0/10 ?. 10:17:11 IV patent on arrival in left hand with 0.9% NaCl at [facility]. 10:17:13 Lab results completed and on chart. 10:17:17 Right groin area was prepped with chlora-prep and draped in sterile fashion 10:17:19 Alarms reviewed by R. N. 10:17:19 Sharps counted by scrub and verified by R.N. 10:17:22 Use device set Femoral Dx 10:17:29 ACIST Syringe (95953) opened to sterile field. 10:17:30 Bag Decanter (2002S) opened to sterile field. 10:17:31 ACIST Hand Control (45129) opened to sterile field. 10:17:31 ACIST Manifold (84326) opened to sterile field. 10:17:32 Tegaderm 4 x 4 (1626W) opened to sterile field. 10:17:33 Medline Cath Pack ([id number]) opened to sterile field. 10:17:34 DIAGNOSTIC Multipack 5Fr catheter set (NQ3669) opened to sterile field. 10:17:35 SHEATH 5FR Holbrook (TLB812) opened to sterile field. 10:17:36 SUSANNEALD Guide Wire (721-579) opened to sterile field. 10:20:52 0.9% NaCl 100 ml/hr I.V. was administered by Janelle Keys RN; used for procedure; Verbal order read back and verified. 10:20:59 Oxygen 2 l/min etCO2 Nasal cannula was administered by Janelle Keys RN; used for procedure; Verbal order read back and verified. 10:21:04 Lidocaine 2% 20ml vial added to field was administered by Man Khanna MD; for local anesthetic; Verbal order read back and verified. 10:21:08 Heparin Flush Bag (1000units/500ml NS) 2 bags added to field was administered by Man Khanna MD; used for procedure; Verbal order read back and verified. 10:28:43 Physician arrived 10:28:43 --------ALL STOP TIME OUT------ 10:28:44 Final Timeout: patient, procedure, and site verified with staff and physician. All members of the team are in agreement. 10:28:46 Right groin site verified by team. 10:28:51 Fire Safety Assessment: A--An alcohol-based skin anteseptic being used preoperatively., C--Open oxygen or nitrous oxide is being used., D--An ESU, laser, or fiber-optic light is being used. 10:29:00 Physical assessment completed. ASA score P 3 - A patient with severe systemic disease as per Man Khanna MD. 10:29:08 2) 60-89 Mildly reduced kidney function, and other findings (as for stage 1) point to kidney disease. 10:29:19 Maximum allowable contrast dose (3.7 X eGFR X 0.75)216 ml. 10:29:25 Sedation plan: IV Moderate Sedation Medication:Versed, Fentanyl 10:29:32 Procedure started. 10:29:35 Versed 2 mg I.V. was administered by Janelle Keys RN; for sedation; Verbal order read back and verified. 10:29:37 Local anesthetic to right femoral artery with Lidocaine 2% by Man Khanna MD.INITIAL ACCESS ONLY 10:29:42 Fentanyl 50 mcg I.V. was administered by Janelle Keys RN; for sedation; Verbal order read back and verified. 10:31:17 A 5 Fr sheath was inserted into the Right Femoral artery 10:31:22 j wire advanced. 10:31:31 A MULTIPACK JL 4.0 5Fr catheter was advanced over the wire and used for Procedure. 10:31:33 LCA angiography performed. 10:33:32 Catheter removed. 10:34:02 Fentanyl 50 mcg I.V. was administered by Janelle Keys RN; for sedation; Verbal order read back and verified. 10:35:49 A MULTIPACK 3DRC 5Fr catheter was advanced over the wire and used for Procedure. 10:35:53 RCA angiography performed. 10:35:54 Catheter removed. 10:36:17 A DIAGNOSTIC AR MOD 5Fr Catheter ([id number]) was advanced over the wire and used for Procedure. 10:37:53 SVG to Circ angiography performed. 10:41:32 Catheter removed. 10:42:37 A DIAGNOSTIC IMT 5Fr Catheter ([id number]) was advanced over the wire and used for Procedure. 10:42:50 VALERO to LAD angiography performed. 10:48:12 Catheter removed. 10:48:22 A MULTIPACK Pigtail 5 Fr catheter was advanced over the wire and used for AO ROOT. 10:48:39 Zero performed for pressure channel P1 10:51:27 Aortic Root visualized 10:53:50 Catheter removed. 10:54:01 Sheath removed intact; hemostasis achieved with Exoseal to the Right Femoral artery. 10:54:15 Procedure ended.(Physican Out) 10:54:44 Fluoroscopy time 07.60 minutes. 10:54:49 Fluoroscopy dose: 780 mGy 10:54:49 Flurop Dose total: 780 10:54:56 Dose Area Product 22786 mGy/cm. 10:55:04 Contrast amount:Isovue 300 88ml. 10:55:06 Maximum allowable dose exceeded? No. 10:55:07 Sharps counted by scrub and verified by R.N. 10:55:11 Insertion/operative site no bleeding no hematoma. 10:55:23 Post right femoral artery:stable 10:55:36 Post-procedure physical assessment completed. ASA score P 2 - A patient with mild systemic disease as per Man Khanna MD. 10:55:41 Post procedure rhythm: unchanged. 10:55:44 Estimated blood loss: 10 ml 10:55:48 Post procedure instruction explained to patient.Patient verbalizes understanding. 10:56:15 Procedure and supply charges have been captured, reviewed, submitted and are correct. 10:56:37 Procedure Complication : No complications 10:56:40 Vital chart was stopped 10:56:46 [facility] Findings: mild to moderate CAD (<70%) 10:56:51 See physician's report for complete and final results. 10:57:04 Report given to Med II. 10:57:09 Patient transfered to Med II with Bed. 10:57:11 Procedure ended. 10:57:11 Full Disclosure recording stopped 10:57:17 End room use (Document Last) Device Usage Item Name Manufacture Quantity Catalog Number Hospital Part Current Minim al Lot# / Charge Number Stock Stock Serial# Code ACIST Acist 1 [id number] 163876 497773 [id number] 20 Syringe Medical (01626) Systems Inc Bag Microtek 1 529674 99477 454491 5 Decanter Medical Inc. () ACIST Hand Acist 1 95618 448254 650924 234555 5 Control Medical (51853) Systems Inc ACIST Acist 1 74613 459410 292479 069218 5 Manifold Medical (42178) Systems Inc Tegaderm 4 3M 1 1626W 020048 107451 175147 5 x 4 (1626W) Medline Medline 1 [id number] 625535 47560 690705 5 Cath Pack ([id number]) DIAGNOSTIC Cardinal 1 [id number] 909199 44100 806810 30 CURRENT 5Fr catheter set ([id number]) SHEATH 5FR Terumo 1 [id number] 554088 236620 166301 5 Holbrook (OIE820) EMERALD Cardinal 1 502-455 017296 488065 081970 5 Guide Wire Health (502455) MULTIPACK Cardinal 1 970943 5 JL 4.0 5Fr Health catheter MULTIPACK Cardinal 1 741463 5 3DRC 5Fr Health catheter DIAGNOSTIC Cardinal 1 [id number] 386547 286034 636393 15 AR MOD 5Fr Health Catheter ([id number]) DIAGNOSTIC Sheridan 1 [id number] 852656 528795 22697 5 IMT 5Fr Scientific Catheter ([id number]) MULTIPACK Cardinal 1 067973 5 Pigtail 5 Health Fr catheter Signature Audit Duck Stage Time Signature Unsigned Intra-Procedure 07/20/2019 Tiffany Anderson 10:58:07 AM RT(R) Intra-Procedure 07/20/2019 Janelle Keys 10:58:46 AM RN Intra-Procedure 07/20/2019 Man Khanna MD 10:59:07 AM [facility] [address] [place] [address]
[2019-07-19] MEDS ORDERED: COMPAZINE25 MG PO (09:25)
[2019-07-19] MEDS ORDERED: PHENERGAN25 MG PO (09:25)
[2019-07-19 10:29] LABS: BASOPHILS 0.3 % (0-2); EOSINOPHILS 0 % (0-7); HEMATOCRIT 34.2 % (42.0-54.0); HEMOGLOBIN 11.8 g/dL (13.5-17.5); IMMATURE GRANULOCYTES 0.6 % (0-5); LYMPHOCYTES 7.4 % (15-50); MCH 32.9 pg (26.0-34.0); MCHC 34.5 g/dL (31.0-37.0); MCV 95.3 fL (80.0-100.0); MEAN PLATELET VOLUME 11.3 fL (7.4-10.4); MONOCYTES 16.4 % (2-11); NEUTROPHILS 75.3 % (40-80); RBC 3.59 10x6/uL (4.20-6.10); RDW 14.2 % (11.5-14.5); WBC 3.2 10x3/uL (4.8-10.8)
[2019-07-19 10:34] LABS: PLATELET COUNT 173 10x3/uL (130-400)
[2019-07-19 11:15] LABS: ANION GAP 10.7 mmol/L (8-16); CALCIUM 8.2 mg/dL (8.5-10.1); CARBON DIOXIDE 25.8 mmol/L (21.0-32.0); CREATININE - SERUM 1.4 mg/dL (0.6-1.3); POTASSIUM - SERUM 4.5 mmol/L (3.5-5.1)
[2019-07-19 11:36] LABS: ALBUMIN 2.8 g/dL (3.4-5.0); BILIRUBIN - TOTAL 0.66 mg/dL (0.2-1.3); PROTEIN - SERUM 6.2 g/dL (6.4-8.2)
[2019-07-19 11:38] LABS: TROPONIN-I 0.327 ng/mL (0.000-0.060)
[2019-07-19 12:04] LABS: MAGNESIUM - SERUM 1.8 mg/dL (1.8-2.4); THYROID STIMULATING HORMONE 1.19 uIU/mL (0.36-3.74)
[2019-07-19 14:19] LABS: CREATINE KINASE 77 UL (21-232)
[2019-07-19 14:20] LABS: TROPONIN-I 1.329 ng/mL (0.000-0.060)
[2019-07-19 14:50] VITALS: BP 137/78; BMI 29.6
[2019-07-19 18:32] VITALS: BP 151/72
[2019-07-19 18:34] LABS: CHOL - HDL RATIO 6.7 ratio (2.3-4.9); LDL-HDL RATIO 3.9 ratio (1.5-3.5)
[2019-07-19 20:00] VITALS: BP 158/76
[2019-07-19 20:28] LABS: BILIRUBIN NEGATIVE (NEGATIVE); GLUCOSE NEGATIVE (NEGATIVE); KETONE NEGATIVE (NEGATIVE); NITRITE NEGATIVE (NEGATIVE); SPECIFIC GRAVITY 1.025 (1.005-1.020); UROBILINOGEN NORMAL (NORMAL)
[2019-07-19 20:37] LABS: BACTERIA FEW /hpf (NEGATIVE); EPITHELIAL CELLS NSEEN /hpf (0-5); RED CELLS - URINE NONE SEEN /hpf (0-5); WHITE CELLS - URINE 0-5 /hpf (NEGATIVE)
[2019-07-19 21:12] LABS: CKMB 3.3 U/L (0.0-3.6); CREATINE KINASE 82 UL (21-232)
[2019-07-19 21:17] LABS: TROPONIN-I 1.435 ng/mL (0.000-0.060)
[2019-07-20] VITALS: BP 135/67
--- NOTE | 2019-07-20 03:05 | NUR ---
I have reviewed this patient and I concur with the Shift Assessment completed by the Licensed Practical Nurse today this shift.
[2019-07-20 04:00] VITALS: BP 192/84
[2019-07-20 06:36] LABS: HEMATOCRIT 30.3 % (42.0-54.0); HEMOGLOBIN 10.6 g/dL (13.5-17.5); MCH 33.2 pg (26.0-34.0); MEAN PLATELET VOLUME 10.5 fL (7.4-10.4); PLATELET COUNT 148 10x3/uL (130-400); RBC 3.19 10x6/uL (4.20-6.10); RDW 14.2 % (11.5-14.5)
[2019-07-20 06:44] LABS: WBC 1.6 10x3/uL (4.8-10.8)
[2019-07-20 07:01] LABS: CALCIUM 7.6 mg/dL (8.5-10.1); CARBON DIOXIDE 21.3 mmol/L (21.0-32.0); CHLORIDE - SERUM 108 mmol/L (98-107); GLUCOSE 124 mg/dL (74-106); POTASSIUM - SERUM 4.3 mmol/L (3.5-5.1); SODIUM 141 mmol/L (136-145); eGFR NON AFRICAN AMERICAN 78 mL/min (90-120)
[2019-07-20 07:07] LABS: CALC OSMOLALITY 285 mosm/kg (275-300); UREA NITROGEN 23 mg/dL (7-18)
--- NOTE | 2019-07-20 07:10 | NUR ---
REPORT RECIEVED FROM PLATE MOLDER ANDPATIENT CARE ASSUMED. PATIENT IS LAYING IN BED ON BACK WITH EYES CLOSED AND BREATHING EVENLY. WILL CONTINUE WITH PLAN OF CARE.
[2019-07-20 09:10] VITALS: BP 137/79
[2019-07-20 11:56] LABS: BASOPHILS 1 % (0-2); EOSINOPHILS 1 % (0-7); LYMPHOCYTES 8 % (15-50); MONOCYTES 22 % (2-11); NEUTROPHILS 66 % (40-80); PLATELET ESTIMATE NORMAL
[2019-07-20 11:57] LABS: ROULEAUX OCC
[2019-07-20 12:19] VITALS: Ht 175.3 cm; Wt 90.7 kg
[2019-07-20 12:54] VITALS: BP 155/72
[2019-07-20 17:50] VITALS: BP 142/83
--- NOTE | 2019-07-20 19:15 | NUR ---
RECEIVED REPORT, WILL ASSUME CARE OF PT, DENIES ANY NEEDS AT THIS TIME, BED IS LOW, SRX2, CALL LIGHT IN REACH, WILL CONTINUE PLAN OF CARE
[2019-07-20 20:30] VITALS: BP 170/82
[2019-07-21 00:30] VITALS: BP 146/66
--- NOTE | 2019-07-21 03:00 | NUR ---
I have reviewed this patient and I concur with the Shift Assessment completed by the Licensed Practical Nurse today this shift.
[2019-07-21 04:30] VITALS: BP 161/73
[2019-07-21 08:21] LABS: BASOPHILS 0.1 % (0-2); EOSINOPHILS 0.5 % (0-7); HEMATOCRIT 29.7 % (42.0-54.0); HEMOGLOBIN 10.5 g/dL (13.5-17.5); IMMATURE GRANULOCYTES 7.5 % (0-5); LYMPHOCYTES 4.2 % (15-50); MCH 33.1 pg (26.0-34.0); MCHC 35.4 g/dL (31.0-37.0); MCV 93.7 fL (80.0-100.0); MEAN PLATELET VOLUME 10.3 fL (7.4-10.4); MONOCYTES 10.8 % (2-11); NEUTROPHILS 76.9 % (40-80); PLATELET COUNT 146 10x3/uL (130-400); RBC 3.17 10x6/uL (4.20-6.10); RDW 14.1 % (11.5-14.5)
[2019-07-21 08:23] LABS: WBC 8.2 10x3/uL (4.8-10.8)
[2019-07-21 08:36] LABS: ALBUMIN 2.4 g/dL (3.4-5.0); ANION GAP 16.1 mmol/L (8-16); BILIRUBIN - TOTAL 0.33 mg/dL (0.2-1.3); CALCIUM 8.3 mg/dL (8.5-10.1); CARBON DIOXIDE 20.4 mmol/L (21.0-32.0); CREATININE - SERUM 1.1 mg/dL (0.6-1.3); POTASSIUM - SERUM 4.5 mmol/L (3.5-5.1); PROTEIN - SERUM 5.8 g/dL (6.4-8.2)
--- NOTE | 2019-07-21 08:39 | NUR ---
AM MEDS GIVEN AT THIS TIME. PT A/O X4, RESP EVEN AND NONLABORED ON RA. PT DENIES ANY NEEDS AT THIS TIME. CALL LIGHT IN REACH, NAD NOTED, WILL CONTINUE TO MONITOR.
[2019-07-21 08:58] VITALS: BP 175/81
[2019-07-21 12:20] VITALS: BP 169/80
--- NOTE | 2019-07-21 13:57 | NUR ---
PT RESTING COMFORTABLY IN BED, DENIES ANY NEEDS AT THIS TIME.
--- NOTE | 2019-07-21 14:29 | NUR ---
CLEANED PT UP FROM INCONT EPISODE. PT DENIES ANY OTHER NEEDS AT THIS TIME. ALL LIGHT IN REACH, NAD NOTED,W ILL CONTINUE TO MONITOR.
--- NOTE | 2019-07-21 16:39 | NUR ---
SPOKE WITH DR. BLANCA AND INFORMED HIM THAT PT IS REQUESTING SOMETHING TO HELP WITH THE BURNING IN HIS THROAT. NEW ORDER FOR CARAFATE 500MG SUSPENSION Q6PRN.
[2019-07-21 17:56] VITALS: BP 152/58
--- NOTE | 2019-07-21 19:15 | NUR ---
RECEIVED REPORT, WILL ASSUME CARE OF PT, DENIES ANY NEEDS AT THIS TIME, BED IS LOW, SRX2, CALL LIGHT IN REACH, WILL CONTINUE PLAN OF CARE
[2019-07-21 20:00] VITALS: BP 171/68
[2019-07-22] VITALS: BP 190/81
[2019-07-22 04:00] VITALS: BP 146/71
--- NOTE | 2019-07-22 05:39 | NUR ---
PT HAS BEEN ST 150'S X 1 HOUR. EKG SHOWS ATRIAL FLUTTER WITH VARIABLE AV BLOCK RATE OF 156. REPORTED THAT HOME MED REVIEW SHOWS PATIENT HAS NOT BEEN ON HIS HOME BETAPACE SINCE ADMIT. ORDERS RECIEVED FOR NOW DOSE OF BETAPACE 40MG AND TO RESTART THE BETAPACE 40MG ORAL BID. PLUS TO OBTAIN AM LAB WORK FOR CREATININE LEVEL FOR DR GOMEZ TO REVIEW WHEN HE ARRIVES FOR ROUNDS. ORDERS NOW CARRIED OUT.
--- NOTE | 2019-07-22 05:44 | NUR ---
I have reviewed this patient and I concur with the Shift Assessment completed by the Licensed Practical Nurse today this shift.
[2019-07-22 06:16] LABS: ANION GAP 15.3 mmol/L (8-16); CALCIUM 8.2 mg/dL (8.5-10.1); CARBON DIOXIDE 21.8 mmol/L (21.0-32.0); CREATININE - SERUM 1.2 mg/dL (0.6-1.3); POTASSIUM - SERUM 4.1 mmol/L (3.5-5.1)
--- NOTE | 2019-07-22 08:40 | NUR ---
PT RESTING, RR EVEN AND UNLABORED. DENIES NEEDS OR PAIN AT THIS TIME. CALL LIGHT WITHIN REACH. WILL CONTINUE TO MONITOR.
--- NOTE | 2019-07-22 09:30 | NUR ---
PT ATTEMPTED TO TAKE MEDICATIONS AND IMMEDIATELY VOMITED THEM. IS ALSO WANTING TO KNOW WHEN HIS DIET CAN BE ADVANCED. EXPLAINED THAT IF HE CANNOT TOLERATE PILLS HE WOULD MOST LIKELY NOT BE ABLE TO TOLERATE AND ADVANCED DIET. DR. BLANCA PAGED AND MADE AWARE OF SITUATION. WILL CONTACT CARDIOLOGY AND MAKE THEM AWARE THAT PT IS UNABLE TO TOLERATE SOTALOL. DR. BLANCA STATED HE WOULD BE BY TO SEE HIM SHORTLY.
[2019-07-22 10:00] VITALS: BP 122/58
--- NOTE | 2019-07-22 10:24 | NUR ---
I have reviewed this patient and I concur with the Shift Assessment completed by the Licensed Practical Nurse today this shift.
--- NOTE | 2019-07-22 10:55 | NUR ---
SPOKE WITH JASON, PT HAD A DOSE OF SOTALOL EARLY THIS MORNING AND WAS ABLE TO TOLERATE. STATED TO JUST MONITOR THE PATIENTs RHYTHM AND IF HE CONVERTS FROM NORMAL SINUS TO CALL HIM BACK.
[2019-07-22 12:20] VITALS: BP 131/64
[2019-07-22 16:37] VITALS: BP 147/62
--- NOTE | 2019-07-22 19:15 | NUR ---
RECEIVED REPORT, WILL ASSUME CARE OF PT, DENIES ANY NEEDS AT THIS TIME, BED IS LOW, SRX2, CALL LIGHT IN REACH, WILL CONTINUE PLAN OF CARE
[2019-07-22 20:00] VITALS: BP 155/66
[2019-07-23 00:30] VITALS: BP 151/61
[2019-07-23 04:00] VITALS: BP 141/58
--- NOTE | 2019-07-23 05:11 | NUR ---
I have reviewed this patient and I concur with the Shift Assessment completed by the Licensed Practical Nurse today this shift.
[2019-07-23 08:08] VITALS: BP 167/67
[2019-07-23 08:21] LABS: BASOPHILS 1.2 % (0-2); EOSINOPHILS 0.2 % (0-7); HEMATOCRIT 30.5 % (42.0-54.0); HEMOGLOBIN 10.4 g/dL (13.5-17.5); IMMATURE GRANULOCYTES 1.6 % (0-5); LYMPHOCYTES 5.7 % (15-50); MCH 33.3 pg (26.0-34.0); MCHC 34.1 g/dL (31.0-37.0); MCV 97.8 fL (80.0-100.0); MEAN PLATELET VOLUME 10.6 fL (7.4-10.4); MONOCYTES 14.2 % (2-11); NEUTROPHILS 77.1 % (40-80); PLATELET COUNT 129 10x3/uL (130-400); RBC 3.12 10x6/uL (4.20-6.10); RDW 15.6 % (11.5-14.5); WBC 10.5 10x3/uL (4.8-10.8)
[2019-07-23 08:22] LABS: ALBUMIN 2.4 g/dL (3.4-5.0); ALKALINE PHOSPHATASE 54 U/L (30-120); BILIRUBIN - TOTAL 0.21 mg/dL (0.2-1.3); CALC OSMOLALITY 285 mosm/kg (275-300); CALCIUM 8.1 mg/dL (8.5-10.1); CARBON DIOXIDE 23.3 mmol/L (21.0-32.0); CHLORIDE - SERUM 110 mmol/L (98-107); GLUCOSE 97 mg/dL (74-106); PROTEIN - SERUM 5.1 g/dL (6.4-8.2); SODIUM 142 mmol/L (136-145); UREA NITROGEN 21 mg/dL (7-18); eGFR NON AFRICAN AMERICAN 78 mL/min (90-120)
[2019-07-23 08:23] LABS: ALT (SGPT) 17 U/L (10-68)
[2019-07-23 11:00] VITALS: BP 179/71
--- NOTE | 2019-07-23 14:46 | NUR ---
Nutrition Follow-up: Per Dr. Winn, pt tolerating some PO with improved diarrhea. Noted 0% of breakfast eaten this AM per record. Diet: Full Liquid No new wt; last wt: 200# (07/19) Labs noted: Ca 8.1, Alb 2.4 Meds noted: Protonix, Zofran, NS @ 125 -Offer Ensure with meals. -Encourage PO intake and honor food preferences within diet restrictions. -MD may consider appetite stimulant. -Monitor wt. -RD following.
[2019-07-23 20:00] VITALS: BP 152/69
[2019-07-24] VITALS: BP 150/71
[2019-07-24 04:00] VITALS: BP 138/60
--- NOTE | 2019-07-24 05:41 | NUR ---
I have reviewed this patient and I concur with the Shift Assessment completed by the Licensed Practical Nurse today this shift.
[2019-07-24 09:41] VITALS: BP 171/56
[2019-07-24 12:47] VITALS: BP 158/60
--- NOTE | 2019-07-24 15:51 | NUR ---
UPON ADMIT, NO FLU SHOT NOTED. WHEN QUESTIONED, HE REFUSED IT.
--- NOTE | 2019-07-24 16:20 | NUR ---
PROVIDED VERBAL AND WRITTEN DISCHARGE TEACHING TO PT, WHO VERBALIZED UNDERSTANDING REGARDING TEACHING. D/C LT FA IV WITH CATHETER TIP INTACT. HEART MONITOR REMOVED AND TAKEN TO REGISTERED NURSE CARDIAC TELEMETRY. 1639- PT LEFT UNIT VIA WHEELCHAIR, WITH ALL BELONGINGS, ACCOMPANIED BY DR. LAURENT. NAD NOTED.
--- NOTE | 2019-07-24 17:56 | MORECARE ---
CASE MANAGEMENT DISCHARGE SUMMARY PATIENT: IRAIDA LAURENT UNIT: [id number] ADM DATE: 07/19/19 AGE: 74 : 45 SEX: M ROOM/BED: D.3985 AUTHOR: ROXANADOC PHYSICIAN: REFERRING PHYSICIAN: DEANNA BLANCA MD DATE OF SERVICE: 07/24/19 Discharge Plan Patient Name: IRAIDA LAURENT Facility: [facility]:[place] : 1945 Planned Disposition: Home Anticipated Discharge Date: 07/24/19 Discharge Date: 07/24/2019 Expected LOS: 5 Initial Reviewer: [email or web address] Initial Review Date: 07/24/2019 Generated: 07/24/19 6:55 pm Comments DCP- Discharge Planning Updated by [email or web address]: Oli Harvey on 07/24/19 4:[address] Patient Name: IRAIDA LAURENT Admission Status: ER Accout number: [id number] Admission Date: 07-19-2019 : 1945 Admission Diagnosis: Attending: DEANNA BLANCA Current LOS: 5 Anticipated DC Date: 07-24-2019 Planned Disposition: Home Primary Insurance: MEDICARE A & B Discharge Planning Comments: CM MET WITH PT IN ROOM TO DISCUSS DISCHARGE PLANNING AND NEEDS. PT REPORTS LIVING AT HOME INDEPENDENTLY WITH HIS CAREGIVER WHOM HE LIVES WITH. PT HAS CPAP FROM [facility] AND NO MEDICAL EQUIPMENT PROVIDER PREFERENCE. PT HAS NO OUTSIDE SERVICES ASSISTING IN THE HOME. CM DISCUSSED AVAILABILITY OF HOME HEALTH, REHAB SERVICES AND MEDICAL EQUIPMENT. PT DENIES DISCHARGE NEEDS, REPORTS HIS SON WILL PICK HIM UP FOR DISCHARGE HOME. IMPORTANT MESSAGE FROM MEDICARE PROVIDED AND EXPLAINED. Supervisor [employer]: Oli Harvey DCPIA - Discharge Planning Initial Assessment Updated by [email or web address]: Oli Harvey on 07/24/19 5:52 pm * Is the patient Alert and Oriented? Yes * How many steps to enter\exit or inside your home? * PCP DR. RAEGAN MARRERO IN [place] * Pharmacy [facility] [place] * Preadmission Environment Home with Family * ADLs Independent * Equipment CPAP * Other Equipment [facility] - CPAP PROVIDER * List name and contact numbers for known caregivers / representatives who currently or will assist patient after discharge: TERRY LAURENT, SON , * Verbal permission to speak to the caregivers and representatives has been obtained from the patient. N/A * Community resources currently utilized None * Please name any agencies selected above. NONE * Additional services required to return to the preadmission environment? No * Can the patient safely return to the preadmission environment? Yes * Has this patient been hospitalized within the prior 30 days at any hospital? No Coverage Notice Reviewer: [id number] Eugenia Harvey Notice Issued Date-Time: 07/24/2019 15:55 Notice Type: IM Discharge Notice Notice Delivered To: Patient Relationship to Patient: Nursery Technician Name: Delivery Method: HAND - Hand Delivered Martha Days: Prior Verbal Notification: Recipient Understood Notice: Yes Recipient Signature: Yes Med Rec Note Co-signed by Attending: Coverage Notice Comment: Patient Name: IRAIDA LAURENT Page [id number] at [id number] All edits/amendments must be made on the electronic document DICTATION DATE: 07/24/191755 CREDIT ADMINISTRATION SPECIALIST: ARIK 07/24/191755 RPT#: [id number] DC DATE:07/24/19 STATUS: DIS IN [facility] [address] [place] [address] END OF REPORT
== END 2019-07-24 16:47 | disposition home or self-care (01) | DRG 391 ==
LOC: D.ER 09:14 → D.M2 11:49 → D.MS 11:49 → D.M2 12:51 → D.SDCHOLD 07-20 13:58 → D.M2 07-24 16:47
PROVIDERS: Emergency Medicine; Internal Medicine Cardiovascular Disease; Internal Medicine Medical Oncology; ADMIT Internal Medicine Hematology & Oncology; ATTEND Internal Medicine Hematology & Oncology
PROC: B2181ZZ Fluoroscopy of Left Internal Mammary Bypass Graft using Low Osmolar Contrast (ICD-10-PCS; 2019-07-20)
PROC: B3101ZZ Fluoroscopy of Thoracic Aorta using Low Osmolar Contrast (ICD-10-PCS; 2019-07-20)
PROC: B2151ZZ Fluoroscopy of Left Heart using Low Osmolar Contrast (ICD-10-PCS; 2019-07-20)
PROC: 4A023N7 Measurement of Cardiac Sampling and Pressure, Left Heart, Percutaneous Approach (ICD-10-PCS; 2019-07-20)
PROC: B2111ZZ Fluoroscopy of Multiple Coronary Arteries using Low Osmolar Contrast (ICD-10-PCS; principal; 2019-07-20 10:00)
DX: K20.9 Esophagitis, unspecified (principal); I21.4 Non-ST elevation (NSTEMI) myocardial infarction; D61.1 Drug-induced aplastic anemia; C15.9 Malignant neoplasm of esophagus, unspecified; I48.0 Paroxysmal atrial fibrillation; I10 Essential (primary) hypertension; E78.5 Hyperlipidemia, unspecified; E86.0 Dehydration; T45.1X5A Adverse effect of antineoplastic and immunosuppressive drugs, initial encounter